=== PATIENT | female | born 1985 ===

== ENCOUNTER 2018-02-20 11:43 | Emergency (ER) | payer OTHER ==
[~2018-02-20] VITALS: Ht 170.2 cm; Wt 90.7 kg
== END 2018-02-20 17:46 | disposition home or self-care (01) ==
LOC: ER 11:43
DX: K29.70 Gastritis, unspecified, without bleeding (principal)

== ENCOUNTER 2018-05-26 12:51 | Emergency (ER) | payer OTHER ==
[~2018-05-26] VITALS: Ht 170.2 cm; Wt 95.3 kg
== END 2018-05-26 16:49 | disposition home or self-care (01) ==
LOC: ER 12:51
DX: B34.9 Viral infection, unspecified (principal)